=== PATIENT | male | born 1975 | race African-American/Black ===

== ENCOUNTER 2021-01-30 10:43 | Emergency (ER) | payer BC ==
[~2021-01-30] VITALS: Ht 182.9 cm; Wt 83.0 kg
[2021-01-30 10:58] VITALS: BP 175/83
[2021-01-30] MEDS ORDERED: IBUPROFEN 400MG TABLET PO ONE (11:45)
[2021-01-30] MEDS ORDERED: ACETAMINOPHEN 325MG TABLET PO ONE (11:45)
[2021-01-30] MEDS ORDERED: ACET-2708 MT (11:47)
[2021-01-30] MEDS ORDERED: IBUP-2028 MT (11:47)
== END 2021-01-30 12:09 | disposition home or self-care (01) ==
LOC: ER 12:02
DX: L72.8 Other follicular cysts of the skin and subcutaneous tissue (principal); R03.0 Elevated blood-pressure reading, without diagnosis of hypertension; J45.909 Unspecified asthma, uncomplicated
CPT/HCPCS: 99283